=== PATIENT | male | born 1995 | race Caucasian/White ===

== ENCOUNTER 2021-01-30 06:48 | Emergency (ER) | payer MEDICAID ==
[~2021-01-30] VITALS: Ht 170.2 cm; Wt 82.0 kg
[2021-01-30] MEDS ORDERED: HYDROCODONE/ACETAMINOPHEN 5/325MG TABLET PO ONE (08:00)
[2021-01-30] MEDS ORDERED: CEFAZOLIN SODIUM 1000MG/VIAL IM ONE (08:30)
[2021-01-30] MEDS ORDERED: HYDR-4346 MT (09:35)
[2021-01-30] MEDS ORDERED: IBUP-2030 MT (09:35)
[2021-01-30] MEDS ORDERED: CEPH500T MT (09:35)
[2021-01-30 09:56] VITALS: BP 118/70
== END 2021-01-30 09:57 | disposition home or self-care (01) ==
LOC: ER 06:51
DX: S90.411A Abrasion, right great toe, initial encounter (principal); X58.XXXA Exposure to other specified factors, initial encounter; Y93.89 Activity, other specified; Y92.89 Other specified places as the place of occurrence of the external cause; Y99.8 Other external cause status
CPT/HCPCS: 73660; 99283; J0690; Z7610